=== PATIENT | male | born 1965 | race Caucasian/White ===

== ENCOUNTER 2019-04-25 10:01 | Emergency (ER) | payer OTHER, SELFPAY ==
[2019-04-25 10:10] VITALS: BP 160/93; PULSE 71; RESP 18; TEMP 38.6; O2SAT 98
[2019-04-25] MEDS: ACETAMINOPHEN 325 MG TABLET 650 MG PO (10:34)
--- NOTE | 2019-04-25 10:59 | ED.URI ---
HPI - URI/Sore Throat General Chief Complaint: Upper Respiratory Infection Stated Complaint: fever/cough Source: patient and RN notes reviewed Mode of arrival: ambulatory Limitations: no limitations History of Present Illness HPI Narrative: The patient, a non-smoker/occasional drinker nonclinical hospital employee, presents with cough and chills. Patient states his was tested today and has influenza A. He reports also 2-day history of cough, congestion and chills. No fever actually measured, wheeze, earache,, precordial chest pain, sore throat, calf edema. Related Data Allergies Allergy/AdvReac Type Severity Reaction Status Date / Time SALICYLATES Allergy Unknown Uncoded 05/24/08 12:02 ASPIRIN (Generic Allergy) Allergy Y Uncoded 08/02/02 13:29 NAPROXEN (Generic Allergy) Allergy Y Uncoded 08/02/02 13:29 NONSTEROIDAL Allergy Uncoded 05/24/08 12:02 Review of Systems Review of Systems: Narrative: General/Constitutional: No weight loss, REPORTS fever Eyes: N0: Redness,discharge Ears/Nose/Throat: No: Epistaxis,ear discharge Respiratory: Denies: Hemoptysis Gastrointestinal: No Vomiting, Bleeding-rectal PMFSH Social History Social History Smoking status: Never smoker Alcohol intake: current Comments At time of signature, agree with nursing past medical, surgical, social and family history. There is no relevant family history pertinent to the presenting complaint Exam Narrative: Exam Narrative: General: Obese appearing, flushed/febrile appearing, well nourished EYE: PERRLA, Conjunctiva clear Ears: Auditory canal normal, TM normal Nose: Rhinorrhea, Mucousal erythema Mouth/Throat: MM moist, Uvula midline, Pharyngeal erythema Neck: Supple, No adenopathy Respiratory: No respiratory distress, Breath sounds equal, CTA Cardiovascular: Distant sounds RRR, No JVD Musculoskeletal: Non tender, Normal strength Skin: Warm, Dry Neurological: A&O x3, CN II-XII intact Psychiatric: Normal mood, Normal affect Course Vital Signs Vital signs: Vital Signs Temperature 101.5 F H 04/25/19 10:10 Pulse Rate 71 04/25/19 10:10 Respiratory Rate 18 04/25/19 10:10 Blood Pressure 160/93 H 04/25/19 10:10 Pulse Oximetry 98 03/16/20 10:10 Temperature 101.5 F H 04/25/19 10:10 Pulse Rate 71 04/25/19 10:10 Respiratory Rate 18 04/25/19 10:10 Blood Pressure 160/93 H 04/25/19 10:10 Pulse Oximetry 98 04/25/19 10:10 MDM - URI/Sore Throat Lab Data Labs: Influenza A Screen Negative Reference Range: Negative Influenza B Screen Negative Reference Range: Negative Discharge Plan Discharge Clinical Impression: Influenza-like illness Patient Disposition: Home, Self-Care Condition: Stable Instructions: Antibiotic Form, Influenza (ED) Prescriptions: New azithromycin 250 mg tablet See Rx Instructions .ROUTE .COMPLEX Qty: 6 RF: 0 benzonatate [Tessalon Perles] 100 mg capsule 100 mg PO TID Qty: 20 RF: 1 codeine-guaifenesin 10-100 mg/5 mL liquid 7.5 ml PO Q6H PRN (Reason: cough) Qty: 118 RF: 0 oseltamivir [Tamiflu] 75 mg capsule 75 mg PO Q12H 5 Days Qty: 10 RF: 0 oseltamivir [Tamiflu] 75 mg capsule 75 mg PO Q12H 5 Days Qty: 10 RF: 0 No Action levothyroxine 50 mcg tablet 50 mcg PO DAILY Qty: 90 RF: 1 metformin 750 mg tablet extended release 24 hr 750 mg PO DAILY Qty: 90 RF: 1 metoprolol succinate 100 mg tablet extended release 24 hr 100 mg PO DAILY Qty: 90 RF: 1 pravastatin 10 mg tablet 10 mg PO DAILY Qty: 90 RF: 1 trazodone 50 mg tablet 50 mg PO DAILY Qty: 90 RF: 0 hydrochlorothiazide 25 mg tablet 25 mg PO DAILY Qty: 90 RF: 1 Follow-up/Referrals: Jennifer Alexander DO [Primary Care Provider] - Stand Alone Forms: Work/School Release IP Discharge Date/Time: 04/25/19 11:05
== END 2019-04-25 11:05 | disposition home or self-care (01) ==
PROVIDERS: Emergency Provider Emergency Medicine; PCP Family Medicine
DX: R05 Cough (principal); R50.9 Fever, unspecified; I10 Essential (primary) hypertension; E03.9 Hypothyroidism, unspecified
CPT/HCPCS: 87804; 99213; A9270; G0463

== ENCOUNTER 2019-11-19 06:58 | Outpatient (CLI) | payer OTHER, SELFPAY ==
[2019-11-19 08:03] LABS: Basophils Absolute Auto 0.1 K/mm3 (0.0-0.1); Basophils Percent Auto 0.6 % (0.2-1.2); Eosinophils Absolute Auto 0.5 K/mm3 (0-0.3); Eosinophils Percent Auto 6.3 % (0-4.4); Hematocrit 44.1 % (42.0-52.0); Hemoglobin 14.9 g/dL (14.0-18.0); Immature Granulocyte Absolute 0.03 K/mm3 (0.00-0.031); Immature Granulocyte Percent A 0.4 % (0-0.5); Lymphocytes Absolute Auto 2.35 K/mm3 (0.9-3.2); Lymphocytes Percent Auto 29.5 % (18.3-44.2); Mean Corpuscular HGB Conc 33.8 g/dl (32-36); Mean Corpuscular Hemoglobin 28.8 pg (26-34); Mean Corpuscular Volume 85.1 fl (80-100); Mean Platelet Volume 10.8 fl (7.4-10.4); Monocytes Absolute Auto 0.6 K/mm3 (0.1-0.6); Neutrophils Absolute Auto 4.4 K/mm3 (1.3-6.7); Neutrophils Percent Auto 55.2 % (45.5-73.1); Platelet Count Result 245 k/mm3 (150-375); Red Blood Count 5.18 M/mm3 (4.6-6.20); Red Cell Distribution Width 12.7 % (11.5-14.5)
[2019-11-19 08:18] LABS: Alanine Aminotransferase 39 U/L (4-50); Albumin Level 4.3 g/dL (3.5-5.1); Alkaline Phosphatase 64 U/L (38-126); Anion Gap 9 mmol/L (8-16); Aspartate Amino Transferase 29 U/L (17-59); Bilirubin,Total 0.4 mg/dL (0.2-1.3); Blood Urea Nitrogen 18 mg/dL (9-20); Calcium 8.8 mg/dL (8.4-10.2); Carbon Dioxide 29 mmol/L (22-30); Chloride 100 mmol/L (98-107); Estimated Glomerular Filt Rate > 60; Glucose 144 mg/dL (75-110); Potassium 3.9 mmol/L (3.4-5.0); Sodium 138 mmol/L (137-145)
[2019-11-19 11:35] LABS: Hemoglobin A1C 6.6 % (<5.7)
== END 2019-11-19 06:59 | disposition home or self-care (01) ==
PROVIDERS: PCP Family Medicine; Visit Provider Family Medicine
DX: E78.5 Hyperlipidemia, unspecified (principal); E11.9 Type 2 diabetes mellitus without complications; Z13.0 Encounter for screening for diseases of the blood and blood-forming organs and certain disorders involving the immune mechanism
CPT/HCPCS: 36415; 80053; 83036; 84443; 85025

== ENCOUNTER 2020-01-11 11:45 | Emergency (ER) | payer OTHER, SELFPAY ==
[2020-01-11 12:00] VITALS: BP 151/93; PULSE 74; RESP 20; TEMP 36.8; O2SAT 99
--- NOTE | 2020-01-11 12:01 | ED.GENADULT ---
HPI - General Adult General Chief complaint: Extremity Problem,Nontraumatic Stated complaint: swollen right foot Time Seen by Provider: 01/11/20 12:01 Source: patient and RN notes reviewed Mode of arrival: ambulatory Limitations: no limitations History of Present Illness HPI narrative: 54-year-old male presents with complaints of redness, warmth, tenderness, and swelling to right lower extremity for the past 7 days. Jose report that he was sitting on the floor playing with grandson and hit RT foot against the wall and also has been scratching RT lower extremity with fingernails and LT foot. Increase in symptoms with redness and swelling for the past 5 days. Ice and Aleve (5 doses) without relief. Tenderness, redness, and swelling started in RT foot and now has increased into RT lower leg. No exacerbating factors. Denies open areas or drainage. Denies fever or chills. Denies nausea, vomiting, and abdominal pain. Tolerating po intake well. The patient reports he have not been diagnosed with COVID-19. The patient reports he is not waiting for the results of a COVID-19 lab test. The patient reports he do not have fever, weakness, or fatigue. The patient reports he do not have a new or worsening cough or shortness of breath. Denies chest pain. The patient reports he do not have any rhinorrhea, congestion, loss of taste, sore throat, and diarrhea. Denies recent traveling. Denies concerns for COVID-19 or exposures been home with limited outdoor exposure except for essential household needs, work, and return home. At this time, patient is not suspected of having COVID-19. Some parts of this dictation were generated by voice recognition software and may contain typographical and/or grammatical inaccuracies. Related Data Allergies Allergy/AdvReac Type Severity Reaction Status Date / Time SALICYLATES Allergy Unknown unknown Uncoded 12/01/19 15:38 ASPIRIN (Generic Allergy) Allergy Y Uncoded 08/02/02 13:29 NAPROXEN (Generic Allergy) Allergy Y Uncoded 08/02/02 13:29 NONSTEROIDAL Allergy unkown Uncoded 12/01/19 15:38 Review of Systems Review of Systems: Narrative: CONSTITUTIONAL: Denies fever, chills, sweats. EYES: Denies visual changes, redness, discharge. ENT: Denies rhinorrhea, congestion, sore throat, otalgia. CARDIOVASCULAR: Denies chest pain, palpitations, edema. RESPIRATORY: Denies dyspnea, wheezing, cough. GASTROINTESTINAL: Denies abdominal pain, nausea, vomiting, diarrhea. SKIN: Complains of redness, swelling, warmth, and tenderness to right lower extremity. MUSCULOSKELETAL: Denies acute back pain, joint pain, or myalgia. NEUROLOGIC: Denies numbness or focal weakness. PSYCHIATRIC: Denies anxiety or depression. All systems reviewed & are unremarkable except as noted in HPI and below. 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 [place] teeth removed 1990 Family History Family History (Updated 01/11/20 @ 12:26 by SOL Oreilly) Father Hypertension Heart disease Mother Alive and well Social History Social History (Updated 01/11/20 @ 12:27 by SOL Oreilly) Smoking status: Never smoker Tobacco type: cigarettes Second hand tobacco smoke exposure: No Alcohol intake: current Substance use: never Substance use type: does not use Living arrangements: with family Occupation/Education: occupation 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
[2020-01-11 12:05] VITALS: BP 151/93; PULSE 74; RESP 20; TEMP 36.8; O2SAT 99
== END 2020-01-11 12:19 | disposition home or self-care (01) ==
PROVIDERS: Emergency Provider Nurse Practitioner Family
DX: L03.115 Cellulitis of right lower limb (principal); E78.5 Hyperlipidemia, unspecified; I10 Essential (primary) hypertension; E03.9 Hypothyroidism, unspecified; E11.9 Type 2 diabetes mellitus without complications
CPT/HCPCS: 99213; G0463

== ENCOUNTER 2020-04-09 09:53 | Outpatient (CLI) | payer OTHER, SELFPAY ==
[2020-04-09 10:25] LABS: Hemoglobin A1C 6.4 % (<5.7)
[2020-04-09 10:30] LABS: Alanine Aminotransferase 34 U/L (4-50); Albumin Level 4.2 g/dL (3.5-5.1); Alkaline Phosphatase 64 U/L (38-126); Anion Gap 6 mmol/L (8-16); Aspartate Amino Transferase 27 U/L (17-59); Bilirubin,Total 0.7 mg/dL (0.2-1.3); Blood Urea Nitrogen 18 mg/dL (9-20); Calcium 9.1 mg/dL (8.4-10.2); Carbon Dioxide 32 mmol/L (22-30); Chloride 102 mmol/L (98-107); Cholesterol 165 mg/dL (0-200); Estimated Glomerular Filt Rate > 60; Glucose 133 mg/dL (75-110); HDL Direct 40 mg/dL; Potassium 4.1 mmol/L (3.4-5.0); Sodium 140 mmol/L (137-145); Triglycerides 116 mg/dL (<150)
[2020-04-09 10:40] LABS: LDL Cholesterol Direct 94 mg/dL
[2020-04-09 10:59] LABS: Prostate Specific Antigen 1.2 ng/mL (< OR = 4.0)
[2020-04-09 11:00] LABS: Creatinine Urine 126.9 mg/dL
[2020-04-09 11:04] LABS: Microalbumin Urine Random 6.4 mg/L (0-16.7)
[2020-04-09 11:14] LABS: Free T4 Free Thyroxine 1.11 ng/mL (0.78-2.19)
== END 2020-04-09 09:54 | disposition home or self-care (01) ==
LOC: ANHLAB 09:55
PROVIDERS: PCP Family Medicine; Visit Provider Family Medicine
DX: E11.9 Type 2 diabetes mellitus without complications (principal); E03.9 Hypothyroidism, unspecified; E78.5 Hyperlipidemia, unspecified; Z13.220 Encounter for screening for lipoid disorders; Z12.5 Encounter for screening for malignant neoplasm of prostate; I10 Essential (primary) hypertension
CPT/HCPCS: 36415; 80048; 80061; 80076; 82043; 83036; 84153; 84439; 84443; G0103

== ENCOUNTER 2020-07-06 08:18 | Outpatient (CLI) | payer OTHER, SELFPAY ==
[2020-07-06 08:30] LABS: Hematocrit 46.1 % (42.0-52.0); Hemoglobin 15.3 g/dL (14.0-18.0); Mean Corpuscular HGB Conc 33.2 g/dl (32-36); Mean Corpuscular Hemoglobin 28.9 pg (26-34); Mean Corpuscular Volume 87.1 fl (80-100); Platelet Count Result 248 k/mm3 (150-375); Red Blood Count 5.29 M/mm3 (4.6-6.20); Red Cell Distribution Width 13.2 % (11.5-14.5)
== END 2020-07-06 08:19 | disposition home or self-care (01) ==
PROVIDERS: PCP Family Medicine; Visit Provider Family Medicine
DX: I10 Essential (primary) hypertension (principal)
CPT/HCPCS: 36415; 85027

== ENCOUNTER 2021-03-09 07:04 | Outpatient (CLI) | payer OTHER, SELFPAY ==
[2021-03-09 07:38] LABS: Hematocrit 46.4 % (42.0-52.0); Hemoglobin 15.6 g/dL (14.0-18.0); Mean Corpuscular HGB Conc 33.6 g/dl (32-36); Mean Corpuscular Hemoglobin 28.9 pg (26-34); Mean Corpuscular Volume 85.9 fl (80-100); Mean Platelet Volume 10.2 fl (7.4-10.4); Platelet Count Result 259 k/mm3 (150-375)
[2021-03-09 07:51] LABS: Anion Gap 6 mmol/L (8-16); Blood Urea Nitrogen 16 mg/dL (9-20); Calcium 9.2 mg/dL (8.4-10.2); Carbon Dioxide 28 mmol/L (22-30); Chloride 103 mmol/L (98-107); Cholesterol 146 mg/dL (0-200); Estimated Glomerular Filt Rate > 60; Glucose 128 mg/dL (65-110); HDL Direct 31 mg/dL; Potassium 3.8 mmol/L (3.4-5.0); Sodium 137 mmol/L (137-145); Triglycerides 104 mg/dL (<150)
[2021-03-09 08:01] LABS: LDL Cholesterol Direct 80 mg/dL
[2021-03-09 10:10] LABS: Free T4 Free Thyroxine 1.01 ng/mL (0.78-2.19)
== END 2021-03-09 07:05 | disposition home or self-care (01) ==
LOC: ANHLAB 07:07
PROVIDERS: PCP Family Medicine; Visit Provider Family Medicine
DX: E11.9 Type 2 diabetes mellitus without complications (principal); I10 Essential (primary) hypertension; E03.9 Hypothyroidism, unspecified; Z13.220 Encounter for screening for lipoid disorders; E78.5 Hyperlipidemia, unspecified
CPT/HCPCS: 36415; 80048; 80061; 83036; 84439; 84443; 85027

== ENCOUNTER 2021-04-05 16:30 | Outpatient (CLI) | payer OTHER, SELFPAY ==
--- NOTE | ~2021-04-05 | MR_ITS ---
. EXAMINATION: MR shoulder RT wo con DATE: 04/05/2021 17:46 INDICATION: Strain of other muscles, fascia and tendons. Right shoulder pain. TECHNIQUE: Magnetic resonance imaging (MRI) of the right shoulder was performed without intravenous c ontrast. Sequences included axial PD-weighted FS FSE, coronal oblique PD-weighted FS FSE and T2-weigh robbie FS FSE, and sagittal oblique T2-weighted FS FSE and T1-weighted FSE. COMPARISON: None. FINDINGS: Coracoacromial arch: The acromion undersurface is curved in morphology (type II). There is moderate acromioclavicular join t osteoarthritis including inferiorly directed osteophytes. There is mild subacromial/subdeltoid burs itis. Rotator cuff: There is an articular-sided, partial-thickness tear of supraspinatus tendon measuring 12 mm anterior to posterior by 15 mm proximal to distal by 70% tendon thickness. There is moderate infraspinatus ten dinopathy. Teres minor tendon is normal. There is moderate subscapularis tendinopathy. Biceps tendon and glenoid labrum: Biceps tendon is in bicipital groove. Intra-articular biceps tendon is normal. There is degeneration of posterior glenoid labrum without well-defined tear. Fluid: There is no glenohumeral joint effusion. Bones/cartilage: There is shallow partial-thickness cartilage loss of glenoid and humeral head. IMPRESSION: 1. Articular-sided, partial-thickness tear of supraspinatus tendon. 2. Mild glenohumeral joint chondrosis. 3. Moderate acromioclavicular joint osteoarthritis. 4. Subacromial/subdeltoid bursitis. Reviewed, dictated and finalized at location A. C [employer]
== END 2021-04-05 16:31 | disposition home or self-care (01) ==
PROVIDERS: PCP Family Medicine; Visit Provider Family Medicine
DX: S46.811A Strain of other muscles, fascia and tendons at shoulder and upper arm level, right arm, initial encounter (principal); X58.XXXA Exposure to other specified factors, initial encounter; M19.011 Primary osteoarthritis, right shoulder; M75.51 Bursitis of right shoulder
CPT/HCPCS: 73221

== ENCOUNTER 2022-07-22 15:51 | Emergency (ER) | payer OTHER, SELFPAY ==
[2022-07-22 16:16] VITALS: BP 121/81; PULSE 83; RESP 16; TEMP 36.2; O2SAT 98
--- NOTE | 2022-07-22 16:23 | ED.URI ---
HPI - URI/Sore Throat General Chief Complaint: Upper Respiratory Infection Stated Complaint: throat pain Time Seen by Provider: 07/22/22 16:23 History of Present Illness HPI Narrative: 57-year-old male presented for a strep test. He states he woke with a mild sore throat today. Endorses his daughter tested positive for strep. Denies cough, sob, n/v/d/f/c. Not taking anything for symptoms. Related Data Home Medications Medication Instructions Recorded Confirmed aspirin 81 mg tablet,delayed 81 mg PO DAILY 03/08/20 03/20/22 release (Adult Low Dose Aspirin) cyanocobalamin (vitamin B-12) 1,000 mcg PO DAILY 03/18/21 03/20/22 1,000 mcg capsule Allergies Allergy/AdvReac Type Severity Reaction Status Date / Time ASPIRIN (Generic Allergy) Allergy Mild Unknown Uncoded 03/20/22 15:56 NAPROXEN (Generic Allergy) Allergy Mild Unknown Uncoded 03/20/22 15:56 NONSTEROIDAL Allergy Mild Unknown Uncoded 03/20/22 15:56 SALICYLATES Allergy Unknown unknown Uncoded 03/20/22 15:56 Review of Systems Review of Systems: CONSTITUTIONAL: Denies body aches, fever, chills, or sweats. EYES: Denies visual changes, redness, or discharge. ENT: Denies rhinorrhea, congestion, or otalgia. CARDIOVASCULAR: Denies chest pain, palpitations, or edema. RESPIRATORY: Denies dyspnea. GASTROINTESTINAL: Denies abdominal pain, nausea, vomiting, or diarrhea. SKIN: Denies rash, itching, or wounds. MUSCULOSKELETAL: Denies back pain, joint pain, or myalgia. 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 2012 [place] teeth removed 1990 Family History Family History Father Hypertension Heart disease Mother Alive and well Social History Social History Smoking status: Never smoker Second hand tobacco smoke exposure: Yes Alcohol intake: current Substance use: never Substance use type: does not use Living arrangements: with family Occupation/Education: occupation 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 EYES: conjunctivae clear ENT: Mucous membranes moist. TMs pearly botello with normal light reflex bilaterally; no tragal tenderness. Oropharynx not erythematous, Tonsils enlarged 1+ and without exudate. No drooling, no hoarseness, no trismus, uvula midline. No tripod positioning, hot potato voice, or soft palate swelling. NECK: Supple. No lymphadenopathy CHEST: Clear to auscultation, breath sounds equal. No respiratory distress, speaks in full sentences. HEART: Regular rate and rhythm. No murmur heard. SKIN: Warm, dry, no rash. NEURO: Alert and oriented x3. Course Course Emergency Course: Patient is aware of diagnosis, understands and agrees to treatment plan. Anticipatory guidance given. Patient agrees to follow-up as directed and is aware of reasons to seek care at the emergency department. Portions of this record may have been created with voice recognition software Level of Care: Express Care Visit Vital Signs Vital signs: Vital Signs Temperature 97.2 F L 07/22/22 16:16 Pulse Rate 83 07/22/22 16:16 Respi
== END 2022-07-22 16:32 | disposition home or self-care (01) ==
PROVIDERS: Emergency Provider Nurse Practitioner Family; PCP Family Medicine
DX: J02.9 Acute pharyngitis, unspecified (principal); E78.5 Hyperlipidemia, unspecified; I10 Essential (primary) hypertension; E03.9 Hypothyroidism, unspecified; E11.9 Type 2 diabetes mellitus without complications; Z79.82 Long term (current) use of aspirin
CPT/HCPCS: 87081; 87880; 99213; G0463